=== PATIENT | female | born 1940 | race Caucasian/White ===

== ENCOUNTER 2018-10-12 13:29 | Emergency (ER) | payer MEDICARE ==
--- OUTSIDE RECORDS SUMMARY | 2018-10-12 13:44 | XMS REPORT ---
:1940 External Reference #:[id number] Author Organization [facility] 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 Dominique Simons MD Primary Care Physician Unavailable Payers Type Date Identification Numbers Payment Provider Subscriber Commercial Policy Number: [id number] [facility] Latosha Daigle PayID: [id number] [address] [address] [place] [address] Medicare Primary Policy Number: [id number] Medicare Latosha Daigle PayID: [id number] [address] [place] [address] Problems Date Description Provider Status Onset: 04/01/2015 Hyperlipidemia Dominique Simons MD Active Onset: 04/01/2015 Irritable bowel syndrome Dominique Simons MD Active Onset: 04/01/2015 Benign essential hypertension Dominique Simons MD Active Onset: 04/01/2015 Pure hypercholesterolemia Dominique Simons MD Active Onset: 04/01/2015 Hypokalemia Dominique Simons MD Active Onset: 10/10/2015 Onychomycosis Dominique Simons MD Active Onset: 03/12/2016 Impaired fasting glycaemia Dominique Simons MD Active Onset: 03/11/2017 Mild intermittent asthma Dominique Simons MD Active Onset: 03/12/2018 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 Onset: 09/19/2018 Increased frequency of urination Dominique Simons MD Active Onset: 08/05/2015 Essential hypertension Dominique Simons MD Inactive Inactive: 11/07/2015 Onset: 08/05/2015 Suspected sickle cell disease Dominique Simons MD Inactive Inactive: 11/07/2015 Onset: 08/05/2015 Screening mammography Dominique Simons MD Inactive Inactive: 11/07/2015 Onset: 08/05/2015 Screening for osteoporosis Dominique Simons MD Inactive Inactive: 11/07/2015 Onset: 04/01/2015 Intrinsic asthma without status Dominique Simons MD Inactive asthmaticus Inactive: 11/07/2015 Onset: 08/05/2015 Mixed hyperlipidemia Inactive Inactive: 11/07/2015 Onset: 08/05/2015 Mild intermittent asthma Dominique Simons MD Inactive Inactive: 09/19/2018 Onset: 08/05/2015 Inflamed seborrheic keratosis Dominique Simons MD Inactive Inactive: 09/19/2018 Onset: 10/10/2015 Abnormal glucose level Dominique Simons MD Inactive Inactive: 09/19/2018 Onset: 03/12/2016 Changes in skin texture Dominique Simons MD Inactive Inactive: 09/19/2018 Onset: 08/13/2016 Acquired trigger finger Dominique Simons MD Inactive Inactive: 09/19/2018 Onset: 08/13/2016 Chest pain Dominique Simons MD Inactive Inactive: 09/19/2018 Onset: 03/11/2017 Urine leukocyte test=++ Dominique Simons MD Inactive Inactive: 09/19/2018 Family History Date Family Member(s) Problem(s) Comments Father due to tetanus () - 49 Father heart murmur Mother due to Heart Disease () - 74 Children 2 First Daughter Hypertension First Daughter Hypercholesterolemia Second Daughter Hypertension Second Daughter Hypercholesterolemia Siblings 1 First Sister Hypercholesterolemia Social History Type Date Description Comments Lives With Diet Healthy, Well Balanced Pets None 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, 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 [employer] pt ADL's/IADL's Independent with all ADL's ADL's/IADL's Independent with all IADL's Hobbies Cooking Hobbies baking Hobbies Gardening Cigarette Use Never Smoked Cigarettes ETOH Use Denies alcohol use Smoking Patient has never smoked Daily Caffeine Consumes on average 2 cups of regular coffee per day Allergies, Adverse Reactions, Alerts Date Description Reaction Status Severity Comments 04/01/2015 NKDA active Medications Medication Date Status Form Strength Qnty SIG Indications Ordering Provider Nebulizer 10/11/ Active Device 1unit use with J45.20 Ronak, 2017 s albuterol MD Dominique vials every 4 hours if needed for wheezing, sob or persistent cough Melatonin ER 09/11/ Active Tablets ER 5mg 1 po qhs 2016 MD Dominique Furosemide 03/18/ Active Tablets 20mg 90tab 1 tab by Ronak, 2016 s mouth in in MD Dominique the morning Fenofibrate 04/05/ Active Tablets 160mg 90tab 1 by mouth Ronak, 2015 s every MD Dominique morning Bisoprolol 03/12/ Active Tablets 5mg 90tab 1 by mouth Ronak, Fumarate 2015 s every day MD Dominique Amlodipine 11/04/ Active Tablets 5mg 180ta 1 by mouth Ronak Besylate 2015 bs 2x/day MD Dominique Potassium 05/27/ Active Tablets ER 20Meq 120ta take one Ronak Chloride Radha 2014 bs tablet by MD Dominique ER mouth every day, take extra tab 2x/week Aspirin 04/01/ Active Tablets DR 81mg 90tab 1 by mouth Ronak, 2014 s every day MD Dominique Calcium 600 04/01/ Active Tablets 600mg 1 by mouth Ronak, 2014 twice a day MD Dominique Proair HFA 04/01/ Active Aerosol 108(90Base 8.500 2 2014 ) mcg/Act gm inhalations MD Dominique every 4 hours as needed Albuterol 04/01/ Active Nebulizer (2.5mg/3ML 225ml 1 vial in Ronak, Sulfate 2014 ) 0.083% nebulizer MD Dominique every 4 hours as needed for wheezing sob or persistant cough Cetirizine 04/01/ Active Tablets 10mg 30tab 1 by mouth Ronak, HCL 2015 s every day MD Dominique prn Nasalcrom 04/01/ Active Aerosol 5.2mg/Act 13ml 1 spray in Ronak2014 each nare MD Dominique tid as needed Zolpidem 04/01/ Active Tablets 10mg 30tab 1/2 by mouth Ronak, Tartrate 2014 s every night MD Dominique at bedtime as needed sleep Reference #: [id number] Valsartan-Hyd 04/01/ Active Tablets 320-25mg 90tab take one Ronak rochlorothiaz 2015 s tablet by MD Dominique shyanne mouth every day Freestyle 00/ Active Strips 100un test blood Filiberto Simons Test 0000 its sugar twice MD Dominique a day Magnesium 00/ Active Tablets 250mg 1 by mouth Unknown 0000 every day Bactrim DS 08/15/ Hx Tablets 800-160mg 14tab 1 tab by Josette 2018 - s mouth twice Charmaine, 09/19/ a day , PHD 2018 Macrobid 07/11/ Hx Capsules 100mg 14cap 1 tab by Ronak 2018 - s mouth twice MD Dominique 07/18/ a day 2018 Prednisone 07/25/ Hx Tablets 10mg 15tab 3 tabs by J45.21 Jatin, 2016 - s mouth every Jenniferl 08/01/ day x 5 days [facility], [employer] 2016 Pravastatin 06/04/ Hx Tablets 40mg 90tab Take One Jatin, Sodium 2016 - s Tablet By Shawanda 06/18/ Mouth Every eigh, [employer] 2016 Evening Truetest 11/07/ Hx Strips 50uni test glucose Ronak Blood Glucose 2016 - ts 2x/week dx: MD Dominique T Est Strips 11/28/ R73.09 2015 Terbinafine 10/10/ Hx Tablets 250mg 30tab 1 by mouth B35.1 Ronak HCL 2016 - s every day MD Dominique 2015 Hyoscyamine 04/04/ Hx Tablets 0.125mg 60tab one tab by 564.1 Ronak Sulfate 2014 - Dispers s mouth every MD Dominique 08/05/ hours 2014 abdominal pain as needed Potassium 04/01/ Hx Tablets ER 20Meq 90tab 1 by mouth Ronak Chloride ER 2015 - s every day MD Dominique 2014 Melatonin 04/01/ Hx Capsules 1mg 2 by mouth Ronak 2014 - every night MD Dominique 03/12/ at bedtime 2015 Advair Diskus 04/01/ Hx Aerosol 250-50mcg/ 3unit use 1 breath Ronak 2014 - Dose s twice a day MD Dominique 2017 Multi For Her 04/01/ Hx Capsules 1 keshawn Simons 2014 - MD Dominique 2015 Biotin 04/01/ Hx Tablets 5000mcg 1 by mouth Ronak 2014 - twice a day MD Dominique 2015 Vitamin C 06/26/ Hx Chewtabs 500mg every day Ronak 2014 - via g-tube MD Dominique 2014 Savision 04/01/ Hx Capsules Ronak 2014 - MD Dominique 2014 Hyoscyamine 04/01/ Hx Tablets ER 0.375mg 60tab 1 by mouth 564.1 Ronak , Sulfate ER 2014 - 12HR s every 12 hr MD Dominique 04/04/ for 2014 diarrhea/ibs Bisoprolol 04/01/ Hx Tablets 10mg 90tab Take One Ronak, Fumarate 2015 - s Tablet By MD Dominique 03/12/ Mouth Every 2015 Day Amlodipine 04/01/ Hx Tablets 2.5mg 90tab Take 2 tabs Ronak, Besylate 2014 - s By Mouth MD Dominique 11/07/ Every Day 2016 Pravastatin 04/01/ Hx Tablets 40mg 90tab Take One Clune, Sodium 2014 - s Tablet By Shawanda 04/05/ Mouth Every , [employer] 2016 Evening Glucosamine 00/ Hx Capsules 750mg, 600 take one Unknown Chondroitin 0000 - mg tablet by 500 Complex 03/12/ mouth every 2017 8 hours Immunizations CPT Code Status Date Vaccine Lot # [id number] Given 09/19/2018 Tdap injection [id number] Given 07/09/2018 Influenza High Dose [id number] Given 08/13/2016 Influenza Virus Vaccine Split Virus Use For [id number] Individual 3Yr Older [id number] Given 08/05/2015 Influenza Vaccine (Fluzone) Age 3 And Older [id number] 64054 Given 08/05/2015 Pneumococcal Conjugate Vaccine 13 Valent For [id number] Intramuscular Use Q2038 Given 07/24/2013 Influenza Vaccine (Fluzone) Age 3 And Older [id number] Given 03/16/2010 Zoster Vaccine Live Injection 91824 Given 02/04/2008 Tdap injection 82053 Given 08/26/2006 Pneumovax Injection Vital Signs Date Vital Result Comment 09/19/2018 BP Systolic 144 mmHg BP Diastolic 80 mmHg BP Systolic Sitting Right Arm 156 mmHg BP Diastolic Sitting Right Arm 80 mmHg Body Temperature 96.2 F Heart Rate 67 /min Respiratory Rate 18 /min Height 65 inches 5'5" Weight 144.00 lb BMI (Body Mass Index) 24.0 kg/m2 BSA (Body Surface Area) 1.72 m2 [place] body weight in kilograms 57 O2 % BldC Oximetry 97 % 07/09/2018 BP Systolic Sitting Right Arm 136 mmHg BP Diastolic Sitting Right Arm 68 mmHg Body Temperature 97.6 F Heart Rate 65 /min Weight 147.00 lb O2 % BldC Oximetry 94 % 03/12/2018 BP Systolic 134 mmHg BP Diastolic 78 mmHg Body Temperature 97.4 F Heart Rate 56 /min Respiratory Rate 18 /min Height 64.75 inches 5'4.75" Weight 147.00 lb BMI (Body Mass Index) 24.6 kg/m2 BSA (Body Surface Area) 1.73 m2 [place] body weight in kilograms 56 O2 % BldC Oximetry 93 % 09/11/2017 BP Systolic Sitting Left Arm 128 mmHg BP Diastolic Sitting Left Arm 62 mmHg Body Temperature 97.6 F Heart Rate 61 /min Height 64.75 inches 5'4.75" Weight 147.12 lb BMI (Body Mass Index) 24.7 kg/m2 BSA (Body Surface Area) 1.73 m2 [place] body weight in kilograms 56 O2 % BldC Oximetry 94 % 03/11/2017 BP Systolic 132 mmHg BP Diastolic 62 mmHg Body Temperature 97.7 F Heart Rate 56 /min Height 65 inches 5'5" Weight 150.00 lb BMI (Body Mass Index) 25.0 kg/m2 BSA (Body Surface Area) 1.75 m2 [place] body weight in kilograms 57 08/13/2016 BP Systolic Sitting Left Arm 135 mmHg BP Diastolic Sitting Left Arm 71 mmHg Body Temperature 97.8 F Heart Rate 16 /min Respiratory Rate 52 /min Height 65 inches 5'5" Weight 148.00 lb BMI (Body Mass Index) 24.6 kg/m2 BSA (Body Surface Area) 1.74 m2 07/25/2016 BP Systolic Sitting Left Arm 126 mmHg BP Diastolic Sitting Left Arm 78 mmHg Body Temperature 98.0 F Heart Rate 72 /min Respiratory Rate 18 /min Height 65 inches 5'5" Weight 148.00 lb BMI (Body Mass Index) 24.6 kg/m2 BSA (Body Surface Area) 1.74 m2 [place] body weight in kilograms 57 03/12/2016 BP Systolic 148 mmHg BP Diastolic 79 mmHg BP Systolic Sitting Left Arm 148 mmHg hr 55 BP Diastolic Sitting Left Arm 84 mmHg hr 55 Heart Rate 53 /min Height 65 inches 5'5" Weight 149.50 lb BMI (Body Mass Index) 24.9 kg/m2 BSA (Body Surface Area) 1.75 m2 12/21/2015 Height 65 inches 5'5" Weight 150.00 lb BMI (Body Mass Index) 25.0 kg/m2 BSA (Body Surface Area) 1.75 m2 11/07/2015 BP Systolic 129 mmHg hr 53 BP Diastolic 74 mmHg hr 53 BP Systolic Sitting Right Arm 136 mmHg BP Diastolic Sitting Right Arm 83 mmHg BP Systolic Sitting Left Arm 143 mmHg BP Diastolic Sitting Left Arm 75 mmHg Heart Rate 53 /min Weight 156.50 lb 10/10/2015 BP Systolic 154 mmHg BP Diastolic 84 mmHg BP Systolic Sitting Right Arm 154 mmHg BP Diastolic Sitting Right Arm 90 mmHg BP Systolic Sitting Left Arm 143 mmHg BP Diastolic Sitting Left Arm 84 mmHg Height 65.75 inches 5'5.75" Weight 154.00 lb BMI (Body Mass Index) 25.0 kg/m2 BSA (Body Surface Area) 1.78 m2 08/05/2015 BP Systolic 159 mmHg BP Diastolic 86 mmHg BP Systolic Sitting Right Arm 154 mmHg BP Diastolic Sitting Right Arm 88 mmHg BP Systolic Sitting Left Arm 151 mmHg BP Diastolic Sitting Left Arm 69 mmHg Body Temperature 96.6 F Heart Rate 51 /min Respiratory Rate 18 /min Height 65.75 inches 5'5.75" Weight 152.00 lb BMI (Body Mass Index) 24.7 kg/m2 BSA (Body Surface Area) 1.78 m2 04/01/2015 BP Systolic 112 mmHg BP Diastolic 68 mmHg Height 66.5 inches 5'6.50" Weight 150.50 lb BMI (Body Mass Index) 23.9 kg/m2 BSA (Body Surface Area) 1.78 m2 Results Test Date Test Result H/L Range Note CBC W/Automated Diff 09/17/2018 White Blood Count 6.6 K/uL 3.1-10.7 1 Red Blood Count 4.42 M/uL 3.90-5.40 1 Hemoglobin 13.8 gm/dL 11.6-15.8 1 Hematocrit 41.5 % 36.0-46.1 1 Mean Cell Volume 93.9 fl 80.9-99.0 1 Mean Corpuscular HGB 31.2 pg 25.9-32.7 1 Mean Corpuscular HGB Conc 33.3 g/dL 30.8-34.3 1 Platelet Count 215 K/uL 155-360 1 Red Cell Distri Width SD 45.6 fl 3-47 1 Red Cell Distri Width %CV 13.7 % 11.7-14.4 1 Mean Platelet Volume 12.0 fL 8.9-12.4 1 Neut% 66.8 % 40.4-72.8 1 Lymph % 21.1 % 20.0-42.0 1 Carver % 9.4 % 4.3-13.2 1 Eo% 2.4 % 0.0-6.6 1 Bas% 0.3 % 0.0-1.1 1 Neut# 4.41 K/uL 1.8-7.0 1 Lymph # 1.39 K/uL 1.0-4.0 1 Carver # 0.62 K/uL 0.3-0.9 1 Eos # 0.16 K/uL 0.0-0.5 1 Baso # 0.02 K/uL 0.0-0.1 1 Comprehensive Metabolic Panel 09/17/2018 Glucose 98 mg/dL 74-106 1 BUN 22 mg/dL High 7-18 1 Creatinine 0.9 mg/dL 0.6-1.3 1 Glom Filtration Rate, Estimate >60 mL/min >60 1 If >60 mL/min >60 1, 2 BUN/Creat 24.4 ratio 1 Sodium 140 mmol/L 136-145 1 Potassium 3.4 mmol/L Low 3.5-5.1 1 Chloride 104 mmol/L 98-107 1 Carbon Dioxide 30 mmol/L 21-32 1 Anion Gap 6 mEq/L Low 8-16 1 Calcium 9.6 mg/dL 8.5-10.1 1 Total Protein 7.4 g/dL 6.4-8.2 1 Albumin 4.0 g/dL 3.4-5.0 1 Globulin 3.4 g/dL 1.9-4.3 1 Alb/Glob 1.2 ratio 1 Bilirubin,Total 0.6 mg/dL 0.2-1.0 1 Sgot/Ast 21 U/L 15-37 1 SGPT/Alt 27 U/L 12-78 1 Alkaline Phosphatase 42 U/L Low 45-117 1 LDL Cholesterol Profile 09/17/2018 Cholesterol 191 mg/dL <200 1, 3 Triglycerides 100 mg/dL <150 1, 4 HDL Cholesterol 63 mg/dL >40 1, 5 LDL-Cholesterol 108 mg/dL < 100 1, 6 Glycohemoglobin A1c 09/17/2018 Glycohemoglobin (A1c) 5.6 % 4.2-6.3 1, 7 eAG 114 mg/dL 1 Urine Culture 09/17/2018 Urine Culture NO GROWTH: FINAL <SEE NOTE> 1, 8 Urine Culture 08/15/2018 Urine Culture STAPHYLOCOCCUS L <SEE NOTE> 9, 10 Quantity 10,000 - 50,000 <SEE NOTE> 9, 11 Ua RFX Micro & Culture II 08/15/2018 Urine Color YELLOW Yellow 9 Urine Clarity CLEAR Clear 9 Urine Glucose - Dipstick NEGATIVE mg/dL Negative 9 Urine Bilirubin - Dipstick NEGATIVE Negative 9 Urine Ketone NEGATIVE mg/dL Negative 9 Urine Specific Treichlers 1.015 1.010-1.030 9 Urine Blood TRACE Negative 9 Urine PH 6.0 Low 6.5-7.5 9 Urine Protein - Dipstick NEGATIVE mg/dL Negative 9 Urine Urobilinogen - Dipstick 0.2 E.U./dL 0.2-1.0 9 Urine Nitrite - Dipstick NEGATIVE Negative 9 Urine Leuk Esterase MODERATE Negative 9 Urine RBC 2-5 rbc/hpf 0-2 9 Urine WBC > 50 wbc/hpf High 0-7 9 Urine Epithelial Cells VERY FEW /lpf None Seen 9 Urine Bacteria VERY FEW None Seen 9 Urine Amorph Sediment VERY FEW Negative 9 Ast-GP67 08/15/2018 Penicillin G >=0.5 9 Oxacillin <=0.25 9 Tetracycline <=1 9 Nitrofurantoin <=16 9 Trimethoprim/Sulfamethoxazole <=10 9 Gentamicin <=0.5 9 Ciprofloxacin <=0.5 9 Moxifloxacin <=0.25 9 Levofloxacin <=0.12 9 Vancomycin <=0.5 9 Ua RFX Micro & Culture II 07/11/2018 Urine Color YELLOW Yellow 12 Urine Clarity SL CLOUDY Clear 12 Urine Glucose - Dipstick NEGATIVE mg/dL Negative 12 Urine Bilirubin - Dipstick NEGATIVE Negative 12 Urine Ketone NEGATIVE mg/dL Negative 12 Urine Specific Treichlers 1.020 1.010-1.030 12 Urine Blood TRACE Negative 12 Urine PH 6.0 Low 6.5-7.5 12 Urine Protein - Dipstick NEGATIVE mg/dL Negative 12 Urine Urobilinogen - Dipstick 0.2 E.U./dL 0.2-1.0 12 Urine Nitrite - Dipstick NEGATIVE Negative 12 Urine Leuk Esterase LARGE Negative 12 Urine RBC 10-20 rbc/hpf High 0-2 12 Urine WBC > 50 wbc/hpf High 0-7 12 Urine Epithelial Cells VERY FEW /lpf None Seen 12 Urine Bacteria MODERATE None Seen 12 Source: URINE, CLEAN CAT <SEE NOTE> 12, 13 Urine Culture 07/11/2018 Urine Culture STAPHYLOCOCCUS L <SEE NOTE> 12, 14 Quantity > 100,000 CFU/mL 12, 15 Ast-GP67 07/11/2018 Penicillin G >=0.5 12 Oxacillin <=0.25 12 Tetracycline <=1 12 Nitrofurantoin <=16 12 Trimethoprim/Sulfamethoxazole <=10 12 Gentamicin <=0.5 12 Ciprofloxacin <=0.5 12 Moxifloxacin <=0.25 12 Levofloxacin <=0.12 12 Vancomycin <=0.5 12 Urine Dipstick 07/09/2018 Ua Color yellow Yellow Ua Clarity clear Clear Ua Leuko negative Negative Ua Nitrite negative Negative Ua Urobilinogen 0.2 0.2 - 1.0 E.U./dL Ua Protein negative Negative Ua PH 6.5 6.5-7.5 Ua Blood trace Negative Ua Specific Treichlers 1.010 1.010-1.030 Ua Ketones negative Negative Ua Bilirubin negative Negative Ua Glucose negative Negative Urine Dipstick 02/28/2018 Ua Color yellow Yellow Ua Clarity clear Clear Ua Leuko negative Negative Ua Nitrite negative Negative Ua Protein negative Negative Ua PH 6.5 6.5-7.5 Ua Blood negative Negative Ua Specific Treichlers 1.010 1.010-1.030 Ua Ketones negative Negative Ua Bilirubin negative Negative Ua Glucose negative Negative Urine Culture 02/28/2018 Urine Culture NO GROWTH: FINAL <SEE NOTE> 16, 17 Urine Culture 10/11/2017 Urine Culture URETHRAL SKIP 18 Quantity > 100,000 CFU/mL 18, 19 CBS W/Automated Diff 09/13/2017 White Blood Count 8.3 K/uL 3.1-10.7 20 Red Blood Count 4.33 M/uL 3.90-5.40 20 Hemoglobin 13.6 gm/dL 11.6-15.8 20 Hematocrit 40.1 % 36.0-46.1 20 Mean Cell Volume 92.6 fl 80.9-99.0 20 Mean Corpuscular HGB 31.4 pg 25.9-32.7 20 Mean Corpuscular HGB Conc 33.9 g/dL 30.8-34.3 20 Platelet Count 239 K/uL 155-360 20 Red Cell Distri Width SD 43.3 fl 3-47 20 Red Cell Distri Width %CV 13.1 % 11.7-14.4 20 Mean Platelet Volume 12.0 fL 8.9-12.4 20 Neut% 66.3 % 40.4-72.8 20 Lymph % 20.9 % 20.0-42.0 20 Carver % 9.8 % 4.3-13.2 20 Eo% 2.6 % 0.0-6.6 20 Bas% 0.4 % 0.0-1.1 20 Neut# 5.53 K/uL 1.8-7.0 20 Lymph # 1.74 K/uL 1.0-4.0 20 Carver # 0.82 K/uL 0.3-0.9 20 Eos # 0.22 K/uL 0.0-0.5 20 Baso # 0.03 K/uL 0.0-0.1 20 Comprehensive Metabolic Panel 09/13/2017 Glucose 90 mg/dL 74-106 20 BUN 24 mg/dL High 7-18 20 Creatinine 0.9 mg/dL 0.6-1.3 20 Glom Filtration Rate, Estimate >60 mL/min >60 20 If >60 mL/min >60 20, 21 BUN/Creat 26.6 ratio 20 Sodium 143 mmol/L 136-145 20 Potassium 3.5 mmol/L 3.5-5.1 20 Chloride 106 mmol/L 98-107 20 Carbon Dioxide 30 mmol/L 21-32 20 Anion Gap 7 mEq/L Low 8-16 20 Calcium 9.4 mg/dL 8.5-10.1 20 Total Protein 7.2 g/dL 6.4-8.2 20 Albumin 3.9 g/dL 3.4-5.0 20 Globulin 3.3 g/dL 1.9-4.3 20 Alb/Glob 1.2 ratio 20 Bilirubin,Total 0.5 mg/dL 0.2-1.0 20 Sgot/Ast 18 U/L 15-37 20 SGPT/Alt 32 U/L 12-78 20 Alkaline Phosphatase 40 U/L Low 45-117 20 LDL Cholesterol Profile 09/13/2017 Cholesterol 162 mg/dL <200 20, 22 Triglycerides 121 mg/dL <150 20, 23 HDL Cholesterol 62 mg/dL >40 20, 24 LDL-Cholesterol 76 mg/dL < 100 20, 25 Glycohemoglobin A1c 09/13/2017 Glycohemoglobin (A1c) 6.0 % 4.2-6.3 20, 26 eAG 126 mg/dL 20 Basic Metabolic Panel 05/14/2017 Glucose 92 mg/dL 74-106 27 BUN 27 mg/dL High 04-23 27 Creatinine 1.1 mg/dL 0.6-1.3 27 Glom Filtration Rate, Estimate 51 mL/min >60 27 If >60 mL/min >60 27, 28 BUN/Creat 24.5 ratio 27 Sodium 143 mmol/L 136-145 27 Potassium 3.7 mmol/L 3.5-5.1 27 Chloride 104 mmol/L 98-107 27 Carbon Dioxide 30 mmol/L 21-32 27 Anion Gap 9 mEq/L 8-16 27 Calcium 10.0 mg/dL 8.5-10.1 27 Microalb/Creat Ratio,Random 03/11/2017 Microalbumin,Urine 34.1 mg/L < 20.0 29 Microalbumin/Creatinine Ratio 64.3 ug/mgCrt < 30.0 29 Urine Creatinine Conc 53 mg/dL 29 Urine Culture 03/11/2017 Urine Culture URETHRAL SKIP 29 Quantity > 100,000 CFU/mL 29, 30 Glycohemoglobin A1c 03/11/2017 Glycohemoglobin (A1c) 6.3 % 4.2-6.3 29, 31 eAG 134 mg/dL 29 LDL Cholesterol Profile 08/24/2016 Cholesterol 192 mg/dL <200 32, 33 Triglycerides 121 mg/dL <150 32, 34 HDL Cholesterol 64 mg/dL >40 32, 35 LDL-Cholesterol 104 mg/dL < 100 32, 36 Comprehensive Metabolic Panel 08/24/2016 Glucose 93 mg/dL 74-106 32 BUN 21 mg/dL High 18 32 Creatinine 0.9 mg/dL 0.6-1.3 32 Glom Filtration Rate, Estimate >60 mL/min >60 32 If >60 mL/min >60 32, 37 BUN/Creat 23.3 ratio 32 Sodium 140 mmol/L 136-145 32 Potassium 3.6 mmol/L 3.5-5.1 32 Chloride 105 mmol/L 98-107 32 Carbon Dioxide 29 mmol/L 21-32 32 Anion Gap 6 mEq/L Low 8-16 32 Calcium 9.8 mg/dL 8.5-10.1 32 Total Protein 7.4 g/dL 6.4-8.2 32 Albumin 3.9 g/dL 3.4-5.0 32 Globulin 3.5 g/dL 1.9-4.3 32 Alb/Glob 1.1 ratio 32 Bilirubin,Total 0.6 mg/dL 0.2-1.0 32 Sgot/Ast 33 U/L 15-37 32 SGPT/Alt 42 U/L 12-78 32 Alkaline Phosphatase 47 U/L 45-117 32 Glycohemoglobin A1c 08/24/2016 Glycohemoglobin (A1c) 5.8 % 4.2-6.3 32, 38 eAG 120 mg/dL 32 CBS W/Automated Diff 08/24/2016 White Blood Count 8.0 K/uL 3.1-10.7 32 Red Blood Count 4.41 M/uL 3.90-5.40 32 Hemoglobin 14.3 gm/dL 11.6-15.8 32 Hematocrit 41.5 % 36.0-46.1 32 Mean Cell Volume 94.1 fl 80.9-99.0 32 Mean Corpuscular HGB 32.4 pg 25.9-32.7 32 Mean Corpuscular HGB Conc 34.5 g/dL High 30.8-34.3 32 Platelet Count 256 K/uL 155-360 32 Red Cell Distri Width SD 43.4 fl 3-47 32 Red Cell Distri Width %CV 13.0 % 11.7-14.4 32 Mean Platelet Volume 11.8 fL 8.9-12.4 32 Neut% 68.1 % 40.4-72.8 32 Lymph % 18.8 % 17.0-46.1 32 Carver % 11.2 % 4.3-13.2 32 Eo% 1.6 % 0.0-6.6 32 Bas% 0.3 % 0.0-1.1 32 Neut# 5.42 K/uL 1.8-7.0 32 Lymph # 1.50 K/uL Low 1.8-7.0 32 Carver # 0.89 K/uL 0.3-0.9 32 Eos # 0.13 K/uL 0.0-0.5 32 Baso # 0.02 K/uL 0.0-0.1 32 Laboratory test finding 08/24/2016 Slide Review (SEE NOTE) 32, 39 Glycohemoglobin A1c 03/12/2016 Glycohemoglobin (A1c) 5.8 % 4.2-6.3 40 eAG 120 mg/dL Glycohemoglobin A1c 10/10/2015 Glycohemoglobin (A1c) 5.9 % 4.2-6.3 41 eAG 123 mg/dL Basic Metabolic Panel 10/10/2015 Glucose 117 mg/dL High 74-106 BUN 15 mg/dL 7-18 Creatinine 0.7 mg/dL 0.6-1.3 Glom Filtration Rate, Estimate >60 mL/min >60 If >60 mL/min >60 42 BUN/Creat 21.4 ratio Sodium 139 mmol/L 136-145 Potassium 4.0 mmol/L 3.5-5.1 Chloride 104 mmol/L 98-107 Carbon Dioxide 31 mmol/L 21-32 Anion Gap 4 mEq/L Low 8-16 Calcium 9.3 mg/dL 8.5-10.1 Laboratory test finding 08/05/2015 Fit Hemoccult negative LDL Cholesterol Profile 08/05/2015 Cholesterol 192 mg/dL <200 43 Triglycerides 173 mg/dL High <150 44 HDL Cholesterol 56 mg/dL >40 45 LDL-Cholesterol 101 mg/dL < 100 46 Comprehensive Metabolic Panel 08/05/2015 Glucose 110 mg/dL High 74-106 BUN 14 mg/dL 7-18 Creatinine 0.8 mg/dL 0.6-1.3 Glom Filtration Rate, Estimate >60 mL/min >60 If >60 mL/min >60 47 BUN/Creat 17.5 ratio Sodium 138 mmol/L 136-145 Potassium 3.7 mmol/L 3.5-5.1 Chloride 102 mmol/L 98-107 Carbon Dioxide 32 mmol/L 21-32 Anion Gap 4 mEq/L Low 8-16 Calcium 9.5 mg/dL 8.5-10.1 Total Protein 7.0 g/dL 6.4-8.2 Albumin 3.8 g/dL 3.4-5.0 Globulin 3.2 g/dL 1.9-4.3 Alb/Glob 1.2 ratio Bilirubin,Total 0.6 mg/dL 0.2-1.0 Sgot/Ast 28 U/L 15-37 SGPT/Alt 50 U/L 12-78 Alkaline Phosphatase 87 U/L 45-117 CBS W/Automated Diff 08/05/2015 White Blood Count 7.5 K/uL 3.1-10.7 Red Blood Count 4.39 M/uL 3.90-5.40 Hemoglobin 14.5 gm/dL 11.6-15.8 Hematocrit 42.2 % 36.0-46.1 Mean Cell Volume 96.1 fl 80.9-99.0 Mean Corpuscular HGB 33.0 pg High 25.9-32.7 Mean Corpuscular HGB Conc 34.4 g/dL High 30.8-34.3 Platelet Count 196 K/uL 155-360 Red Cell Distri Width SD 45.3 fl 3-47 Red Cell Distri Width %CV 13.3 % 11.7-14.4 Mean Platelet Volume 12.1 fL 8.9-12.4 Neut% 70.8 % 40.4-72.8 Lymph % 17.5 % 17.0-46.1 Carver % 10.1 % 4.3-13.2 Eo% 1.2 % 0.0-6.6 Bas% 0.4 % 0.0-1.1 Neut# 5.34 K/uL 1.0-7.0 Lymph # 1.32 K/uL Low 1.8-7.0 Carver # 0.76 K/uL 0.3-0.9 Eos # 0.09 K/uL 0.0-0.5 Baso # 0.03 K/uL 0.0-0.1 1 I10 E78.5 Z13.0 R73.01 N30.81 2 Note: Persistent reduction for 3 months or more in an eGFR <60 mL/min/1.73 m2 defines CKD. Patients with eGFR values >/=60 mL/min/1.73 m2 may also have CKD if evidence of persistent proteinuria is present. The original MDRD equation for estimated GFR is not valid for patients less than 18 years of age. Additional information may be found at www.kdoqi.org. 3 Reference Guidelines*: Desirable: ........... < 200 mg/dL Borderline High: ..... 200-239 mg/dL High: ................ >=240 mg/dL * The National Cholesterol Education Program (NCEP) 4 Reference Guidelines*: Normal: ............. < 150 mg/dL Borderline High: .... 150-199 mg/dL High: ............... 200-499 mg/dL Very High: .......... > 500 mg/dL * Source: National Cholesterol Education Program (NCEP) 5 Reference Guidelines*: Low HDL: ..... < 40 mg/dL Normal: ..... 40-60 mg/dL Desirable: ... > 60 mg/dL *The National Cholesterol Education Program(NCEP) 6 Reference Guidelines*: Optimal:........... <100 mg/dL Near Optimal....... 100-129 mg/dL Borderline High.... 130-159 mg/dL High............... 160-189 mg/dL Very High.......... >=190 mg/dL * Source: National Cholesterol Education Program (NCEP) 7 Elevated levels of HbA1c suggest the need for more aggressive treatment of glycemia. The [place] [employer] recommends that a primary goal of therapy should be a HbA1c of <7% and that physicians should re-evaluate the treatment regimen in patients with HbA1c values consistently >8%. 8 NO GROWTH: FINAL REPORT 9 R30.0 10 STAPHYLOCOCCUS LUGDUNENSIS 11 10,000 - 50,000 CFU/mL 12 R31.9 13 URINE, CLEAN CATCH 14 STAPHYLOCOCCUS LUGDUNENSIS 15 > 100,000 CFU/mL 16 DROP OFF SPEC AT [facility] 17 NO GROWTH: FINAL REPORT 18 R82.99 19 > 100,000 CFU/mL 20 Z13.0 E78.5 I10 R73.01 21 Note: Persistent reduction for 3 months or more in an eGFR <60 mL/min/1.73 m2 defines CKD. Patients with eGFR values >/=60 mL/min/1.73 m2 may also have CKD if evidence of persistent proteinuria is present. The original MDRD equation for estimated GFR is not valid for patients less than 18 years of age. Additional information may be found at www.kdoqi.org. 22 Reference Guidelines*: Desirable: ........... < 200 mg/dL Borderline High: ..... 200-239 mg/dL High: ................ >=240 mg/dL * The National Cholesterol Education Program (NCEP) 23 Reference Guidelines*: Normal: ............. < 150 mg/dL Borderline High: .... 150-199 mg/dL High: ............... 200-499 mg/dL Very High: .......... > 500 mg/dL * Source: National Cholesterol Education Program (NCEP) 24 Reference Guidelines*: Low HDL: ..... < 40 mg/dL Normal: ..... 40-60 mg/dL Desirable: ... > 60 mg/dL *The National Cholesterol Education Program(NCEP) 25 Reference Guidelines*: Optimal:........... <100 mg/dL Near Optimal....... 100-129 mg/dL Borderline High.... 130-159 mg/dL High............... 160-189 mg/dL Very High.......... >=190 mg/dL * Source: National Cholesterol Education Program (NCEP) 26 Elevated levels of HbA1c suggest the need for more aggressive treatment of glycemia. The [place] [employer] recommends that a primary goal of therapy should be a HbA1c of <7% and that physicians should re-evaluate the treatment regimen in patients with HbA1c values consistently >8%. 27 E78.00 I44.0 I10 28 Note: Persistent reduction for 3 months or more in an eGFR <60 mL/min/1.73 m2 defines CKD. Patients with eGFR values >/=60 mL/min/1.73 m2 may also have CKD if evidence of persistent proteinuria is present. The original MDRD equation for estimated GFR is not valid for patients less than 18 years of age. Additional information may be found at www.kdoqi.org. 29 R73.01 I10 R82.99 30 > 100,000 CFU/mL SPECIMEN IS A MIX OF GRAM POSITIVE ORGANISMS CONSISTENT WITH SKIN VAGINAL CONTAMINATION. SUGGEST REPEAT SPECIMEN IF CLINICALLY INDICATED. 31 Elevated levels of HbA1c suggest the need for more aggressive treatment of glycemia. The [place] [employer] recommends that a primary goal of therapy should be a HbA1c of <7% and that physicians should re-evaluate the treatment regimen in patients with HbA1c values consistently >8%. 32 E78.5 R73.01 Z13.0 33 Reference Guidelines*: Desirable: ........... < 200 mg/dL Borderline High: ..... 200-239 mg/dL High: ................ >=240 mg/dL * The National Cholesterol Education Program (NCEP) 34 Reference Guidelines*: Normal: ............. < 150 mg/dL Borderline High: .... 150-199 mg/dL High: ............... 200-499 mg/dL Very High: .......... > 500 mg/dL * Source: National Cholesterol Education Program (NCEP) 35 Reference Guidelines*: Low HDL: ..... < 40 mg/dL Normal: ..... 40-60 mg/dL Desirable: ... > 60 mg/dL *The National Cholesterol Education Program(NCEP) 36 Reference Guidelines*: Optimal:........... <100 mg/dL Near Optimal....... 100-129 mg/dL Borderline High.... 130-159 mg/dL High............... 160-189 mg/dL Very High.......... >=190 mg/dL * Source: National Cholesterol Education Program (NCEP) 37 Note: Persistent reduction for 3 months or more in an eGFR <60 mL/min/1.73 m2 defines CKD. Patients with eGFR values >/=60 mL/min/1.73 m2 may also have CKD if evidence of persistent proteinuria is present. The original MDRD equation for estimated GFR is not valid for patients less than 18 years of age. Additional information may be found at www.kdoqi.org. 38 Elevated levels of HbA1c suggest the need for more aggressive treatment of glycemia. The [place] [employer] recommends that a primary goal of therapy should be a HbA1c of <7% and that physicians should re-evaluate the treatment regimen in patients with HbA1c values consistently >8%. 39 Instrument flagged sample for slide review. Less than 10% Bands seen, no other immature WBC's seen. RBC morphology essentially normal. Platelet estimate=NORMAL 40 Elevated levels of HbA1c suggest the need for more aggressive treatment of glycemia. The [place] [employer] recommends that a primary goal of therapy should be a HbA1c of <7% and that physicians should re-evaluate the treatment regimen in patients with HbA1c values consistently >8%. 41 Elevated levels of HbA1c suggest the need for more aggressive treatment of glycemia. The [place] [employer] recommends that a primary goal of therapy should be a HbA1c of <7% and that physicians should re-evaluate the treatment regimen in patients with HbA1c values consistently >8%. 42 Note: Persistent reduction for 3 months or more in an eGFR <60 mL/min/1.73 m2 defines CKD. Patients with eGFR values >/=60 mL/min/1.73 m2 may also have CKD if evidence of persistent proteinuria is present. The original MDRD equation for estimated GFR is not valid for patients less than 18 years of age. Additional information may be found at www.kdoqi.org. 43 Reference Guidelines*: Desirable: ........... < 200 mg/dL Borderline High: ..... 200-239 mg/dL High: ................ >=240 mg/dL * The National Cholesterol Education Program (NCEP) 44 Reference Guidelines*: Normal: ............. < 150 mg/dL Borderline High: .... 150-199 mg/dL High: ............... 200-499 mg/dL Very High: .......... > 500 mg/dL * Source: National Cholesterol Education Program (NCEP) 45 Reference Guidelines*: Low HDL: ..... < 40 mg/dL Normal: ..... 40-60 mg/dL Desirable: ... > 60 mg/dL *The National Cholesterol Education Program(NCEP) 46 Reference Guidelines*: Optimal:........... <100 mg/dL Near Optimal....... 100-129 mg/dL Borderline High.... 130-159 mg/dL High............... 160-189 mg/dL Very High.......... >=190 mg/dL * Source: National Cholesterol Education Program (NCEP) 47 Note: Persistent reduction for 3 months or more in an eGFR <60 mL/min/1.73 m2 defines CKD. Patients with eGFR values >/=60 mL/min/1.73 m2 may also have CKD if evidence of persistent proteinuria is present. The original MDRD equation for estimated GFR is not valid for patients less than 18 years of age. Additional information may be found at www.kdoqi.org. Procedures Date CPT Code Description Status Comment 09/19/2018 Mammogram Completed 09/11/2018 Diabetic Foot Exam Completed 08/05/2017 Bone Mineral Density Test Completed 07/17/2016 Colonoscopy Completed 05/07/2016 Colonoscopy Completed [place]: told probably no more 08/12/2015 Mammogram Completed 08/05/2015 44562 Excision Of Warts Less Than Completed 15 Encounters Type Date Location Provider CPT E/M Dx Office Visit 09/19/2018 9:00a Family Medicine Dominique Sylvester [place] [address] I10 J45.20 E78.5 H35.3221 R35.0 Office Visit 08/15/2018 1:00p [place], [address] R35.0 Main PHD R30.0 Office Visit 07/09/2018 1:00p Family Medicine [facility] [place] [address] R10.9 R31.9 Z23 Office Visit 03/12/2018 2:45p Family [place] [address] I10 E78.5 R73.01 J45.20 H35.3221 Office Visit 02/28/2018 11:30a Family Medicine [facility] Nurse [address] Office Visit 09/11/2017 8:30a Family Medicine Dominique Sylvester [place] [address] E78.5 I10 R73.01 J45.20 Office Visit 03/11/2017 4:00p [place] [address] I10 R73.01 E78.5 J45.20 Office Visit 08/13/2016 1:15p [place] [address] M65.332 R07.89 I10 E78.5 J45.20 R73.01 Z13.0 Z23 Office Visit 07/25/2016 1:30p [facility] Jerome Steiner, [address] J45.21 [facility] [employer] Office Visit 03/12/2016 1:30p [facility] [place] [address] I[address] [facility] R73.01 R23.4 Office Visit 11/07/2015 9:00a [facility] [place] [address] I10 R73.09 Office Visit 10/10/2015 9:00a [facility] [place] [address] I10 B35.1 R73.09 Office Visit 08/05/2015 9:00a [facility] Dominique Simons [place] [address] Z00.00 E78.5 I10 Z13.0 J45.20 Z12.31 Z13.820 L82.0 Z23 Office Visit 04/01/2015 10:00a [facility] [place] [address] 564.1 493.10 401.1 272.0 276.8 Plan of Care Future Appointment(s):01/12/2019 8:30 am - Dominique Simons MD at [facility]09/19/2018 - Dominique Simons MDZ00.00 Encntr for general adult medical exam w/o abnormal findingsComments:MAINTAIN WEIGHT AND DAILY EXERCISE; DAILY SUNSCREEN FOR SKIN CANCER PREVENTION;CALCIUM AND VIT D SUPPLEMENTS : CONTINUEPAP/PELVIC, MAMMOGRAM, COLON CA SCREENING, LABS AND IMMUNIZATION PLANS [facility] PROXY: IN CHART;WE REVIEWED ALL YOU LABS.TETANUS WITH PERTUSSIS TODAY, THEN YOU'RE ALL UP TODATE.FIND OUT FROM INSURANCE PLAN ABOUT COST OF SHINGRIX VACCINE.I10 Essential (primary) hypertensionComments:OKAY, A LITTLE BIT HIGHER THAN WE WANT.PLAN: INCREASE AMLODIPINE TO 2X/DAY INCREASE POTASSIUM TO 2 TABS 2X/WEEK CONTINUE FUROSEMIDE, VALSARTAN/ HCTZ AND BISOPROLOL AT USUAL DOSES CONTINUE BABY ASPIRIN ONCE A DAY CHECK BP AT HOME; CALL IF BP IS NO BETTER BP GOAL: 130/ 60Follow up:3 MOJ45.20 Mild intermittent asthma, uncomplicatedComments:CONT. 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
[2018-10-12 13:48] VITALS: BP 136/62
--- NOTE | 2018-10-12 14:03 | UC ---
Respiratory Complaint HPI - HPI Summary HPI Summary: 78 year old female with history of asthma presents with 2 day history of progressively worsening chest tightness, difficulty breathing, and a non- prodcutive cough. States has had to use her rescue inhaler 2 times in past 2 days. Denies fever, chills, nasal congestion, ear pain, sore throat, chest pain , palpitations, abdominal pain, nausea, or vomiting. - History of Current Complaint Chief Complaint: UCRespiratory Stated Complaint: COUGH,ST Time Seen by Provider: 10/12/18 13:44 Hx Obtained From: Patient Pain Intensity: 0 - Allergies/Home Medications Allergies/Adverse Reactions: Allergies Allergy/AdvReac Type Severity Reaction Status Date / Time cat dander Allergy Eyes Verified 10/12/18 13:45 Itchy/Swollen/Red/Watery environmental Allergy Eyes Uncoded 10/12/18 13:45 Itchy/Swollen/Red/Watery Home Medications: Home Medications Albuterol 2.5MG/3ML (0.083%)* [Ventolin 2.5 MG/3 ML NEB.MARU*] 2.5 mg INH Q6H PRN 10/12/18 [History Confirmed 10/12/18] Albuterol HFA INHALER* [Ventolin HFA Inhaler*] 1 - 2 puff INH Q4H PRN 10/12/18 [ History Confirmed 10/12/18] Amlodipine Besylate [Norvasc 5 mg tab] 5 mg PO DAILY 10/12/18 [History Confirmed 10/12/18] Aspirin 81 mg CHEW TAB* 81 mg PO DAILY 10/12/18 [History Confirmed 10/12/18] Bisoprolol TAB* [Zebeta TAB*] 5 mg PO DAILY 10/12/18 [History Confirmed 10/12/18 ] Calcium Carbonate [Calcium] 500 mg PO BID 10/12/18 [History Confirmed 10/12/18] Cetirizine* [ZyrTEC 10 MG TAB*] 10 mg PO DAILY 10/12/18 [History Confirmed 10/12] Fenofibrate(NF) [Tricor(NF)] 1 tab PO DAILY 10/12/18 [History Confirmed 10/12/18 ] Fluticasone-Salmeterol 250-50* [Advair Diskus 250-50*] 1 puff INH BID 10/12/18 [ History Confirmed 10/12/18] Furosemide TAB* [Lasix TAB*] 20 mg PO DAILY 10/12/18 [History Confirmed 10/12/18 ] Magnesium Oxide [Magnesium] 250 mg PO DAILY 10/12/18 [History Confirmed 10/12/18 ] Potassium Chloride 20 meq PO DAILY 10/12/18 [History Confirmed 10/12/18] Valsartan/HCTZ 320/25(NF) [Diovan Hct 320/25(NF)] 1 tab PO DAILY 10/12/18 [ History Confirmed 10/12/18] Zolpidem TAB* [Ambien*] 5 mg PO BEDTIME PRN 10/12/18 [History Confirmed 10/12/18 ] PMH/Surg Hx/FS Hx/Imm Hx Endocrine History: Dyslipidemia Cardiovascular History: Hypertension, Other - Venous insufficiency Respiratory History: COPD - Surgical History Surgical History: Yes Surgery Procedure, Year, and Place: tonsillectomy. hysterectomy. . gallbladder removal. bone cyst remocal right leg - Family History Known Family History: Positive: Cardiac Disease, Hypertension - Social History Occupation: Retired Lives: With Family Alcohol Use: None Substance Use Type: None Smoking Status (MU): Never Smoked Tobacco Review of Systems All Other Systems Reviewed And Are Negative: Yes Constitutional: Negative: Fever, Chills Skin: Positive: Negative Eyes: Negative: Drainage, Eye Redness ENT: Negative: Sore Throat, Ear Ache, Nasal Discharge, Sinus Congestion, Sinus Pain/Tenderness Respiratory: Positive: Shortness Of Breath, Cough Cardiovascular: Negative: Palpitations, Chest Pain Gastrointestinal: Negative: Abdominal Pain, Vomiting, Nausea Genitourinary: Positive: Negative Musculoskeletal: Positive: Negative Neurological: Positive: Negative Is Patient Immunocompromised?: No Physical Exam - Summary Physical Exam Summary: GENERAL APPEARANCE: Well developed, well nourished, alert and cooperative, and appears to be in no acute distress. EYES: Conjunctiva clear. No discharge. Vision is grossly intact. EARS: External auditory canals and tympanic membranes clear, hearing grossly intact. NOSE: No nasal congestion or discharge. THROAT: Oral cavity and pharynx normal. No inflammation, swelling, exudate, or lesions. Teeth and gingiva in good general condition. NECK: Neck supple, non-tender without lymphadenopathy. CARDIAC: Normal S1 and S2. No S3, S4 or murmurs. Rhythm is regular. There is no peripheral edema, cyanosis or pallor. Extremities are warm and well perfused. Capillary refill is less than 2 seconds. LUNGS: Clear to auscultation without rales, rhonchi, wheezing or diminished breath sounds. Loose non-productive cough. ABDOMEN: Positive bowel sounds. Soft, nondistended, nontender. No guarding or rebound. No masses or hepatosplenomegally. MUSKULOSKELETAL: ROM intact to all extremities. No joint erythema or tenderness. Normal muscular development. Normal gait. SKIN: Skin normal color, texture and turgor with no lesions or eruptions. Triage Information Reviewed: Yes Vital Signs: Initial Vital Signs Temp 98.9 F 10/12/18 13:44 Pulse 72 10/12/18 13:44 Resp 23 10/12/18 13:44 BP 136/62 10/12/18 13:44 Pulse Ox 96 10/12/18 13:44 Vital Signs Reviewed: Yes UC Diagnostic Evaluation - Laboratory O2 Sat by Pulse Oximetry: 96 Respiratory Course/Dx - Course Course Of Treatment: 78 year old female with history of asthma presents with 2 day history of progressively worsening chest tightness, difficulty breathing, and a non-prodcutive cough. States has had to use her rescue inhaler 2 times in past 2 days. Denies fever, chills, nasal congestion, ear pain, sore throat, chest pain, palpitations, abdominal pain, nausea, or vomiting. Afebrile. VSS. Exam reveals well appearing older adult in no acute distress. Loose non- productive cough. Bilateral breath sounds clear. Remainder of exam unremarkable. Symptoms are consistent with an acute bronchitis. With her history of asthma will treat with course of antibiotics and have her continue to use her inhalers as directed. She is to follow up with her PCP in 5-7 days if symptoms do not improve. Warning symptoms were reviewed with patient. Verbalizes understanding and agrees with POC. - Differential Dx/Diagnosis Differential Diagnosis/HQI/PQRI: Bronchitis, Exacerbation Of COPD, Lower Resp Infection, Sinusitis Provider Diagnosis: Acute bronchitis, Asthma Discharge - Sign-Out/Discharge Documenting (check all that apply): Patient Departure All imaging exams completed and their final reports reviewed: No Studies - Discharge Plan Condition: Stable Disposition: HOME Prescriptions: Azithromyxin ROBEL (NF) [Z-Robel (Zithromax) 250 mg tabs #6] 2 tab PO .TODAY, THEN 1 DAILY #6 tab Patient Education Materials: Acute Bronchitis (ED) Referrals: Dominique Simons MD [Primary Care Provider] - 5 Days (If no improvement in symptoms.) Additional Instructions: Your history and exam are consistent with an acute bronchitis. With your asthma history we will treat you with an antibiotic for the infection. Start azithromycin 2 tabs today then 1 tab a day for next 4 days. Drink plenty of fluids to avoid dehydration especially if you are running any fever. Take over the counter acetaminophen (Tylenol) according to directions as needed for pain or fever. Follow up with your primary care provider in 5-7 days if symptoms persist. Seek immediate medical attention in the emergency room if you have fever greater than 100.5 F despite taking acetaminophen, you have chest pain, feel as if your heart is racing or skipping beats, having difficulty breathing despite using your rescue inhaler, or have any worsening of symptoms. - Billing Disposition and Condition Condition: STABLE Disposition: Home - Attestation Statements Provider Attestation: I was available for consult. This patient was seen by the BLANE. The patient was not presented to , seen by or examined by md -Jackeline Sanders MD
== END 2018-10-12 14:20 | disposition home or self-care (01) ==
LOC: UCCORT 13:29
DX: J20.9 Acute bronchitis, unspecified (principal); J45.909 Unspecified asthma, uncomplicated; I10 Essential (primary) hypertension; J44.9 Chronic obstructive pulmonary disease, unspecified
CPT/HCPCS: 99202; G0463

== ENCOUNTER 2019-07-06 18:16 | Emergency (ER) | payer MEDICARE, OTHER ==
--- OUTSIDE RECORDS SUMMARY | 2019-07-06 18:26 | XMS REPORT | Continuity of Care Document ---
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 Active Problems Provider Date Hyperlipidemia Dominique Simons MD Onset: 04/01/2015 Irritable bowel syndrome Dominique Simons MD Onset: 04/01/2015 Benign essential hypertension Dominique Simons MD Onset: 04/01/2015 Pure hypercholesterolemia Dominique Simons MD Onset: 04/01/2015 Hypokalemia Dominique Simons MD Onset: 04/01/2015 Onychomycosis Dominique Simons MD Onset: 10/10/2015 Impaired fasting glycaemia Dominique Simons MD Onset: 03/12/2016 Mild intermittent asthma Dominique Simons MD Onset: 03/11/2017 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 Exacerbation of intermittent asthma Dominique Simons MD Onset: 03/06/2019 Shoulder joint pain Dominique Simons MD Onset: 01/12/2019 Increased frequency of urination Dominique Simons MD Onset: 09/19/2018 Social History Type Date Description Comments Sex Unknown Tobacco Use Start: Unknown Never Smoked Cigarettes Smoking Status Reviewed: 06/09/19 Never Smoked Cigarettes ETOH Use Denies alcohol use Tobacco Use Start: Unknown Patient has never smoked Allergies, Adverse Reactions, Alerts Active Allergies Reaction Severity Comments Date Statins 06/09/2019 Medications Active Medications SIG Qnty Indications Ordering Date Provider Proair HFA 2 inhalations every 17gm J45.30 Dominique Simons, 03/20/2019 4 hours as needed 108(90Base) mcg/Act for wheezing, sob Aerosol or persistent cough True Metrix Air use to check 1units R73.01 Dominique Simons, 03/18/2019 Blood Glucose glucose once a day Meter/Bluetooth Smart W/Device Kit True Metrix Blood test glucose once a 150units R73.01 Dominique Simons, 09/2019 Glucosetest Strips day Strips Trueplus Lancets use to check 150units R73.01 Dominique Simons, 03/18/2019 33G Micro Thin glucose once a day 33G Misc Advair Diskus take 1 puff twice 180units Dominique Simons, 03/06/2019 daily. 250-50mcg/Dose Aerosol Cefdinir 1 by mouth twice a 20caps J45.21 Dominique Simons, 03/06/2019 300mg day MD Capsules Furosemide take one tablet by 90tabs Dominique Simons, 12/31/2018 40mg mouth in the MD Tablets morning Nebulizer use with albuterol 1units J45.20 Dominique Simons, 10/11/2017 Device vials every 4 hours MD if needed for wheezing, sob or persistent cough Melatonin ER 1 po qhs Dominique Simons, 09/11/2017 5mg MD Tablets ER Fenofibrate 1 by mouth every 90tabs Dominique Simons, 04/05/2016 160mg morning MD Tablets Bisoprolol Fumarate 1 by mouth every 90tabs Dominique Simons, 03/12/2016 day MD 5mg Tablets Amlodipine Besylate 1 by mouth in am 90tabs Dominique Simons, 11/04/2015 MD 5mg Tablets Potassium Chloride take one tablet by 120tabs Dominique Simons, 05/27/2015 Radha ER mouth every day, 20Meq take extra tab Tablets ER 2x/week Aspirin 1 by mouth every 90tabs Dominique Simons, 04/01/[address] Albuterol Sulfate 1 vial in nebulizer 225ml Dominique Simons, 04/01/2015 every 4 hours as (2.5mg/3ML) 0.083% needed for Nebulizer wheezing, sob or persistant cough Cetirizine HCL 1 by mouth every 30tabs Dominique Simons, 04/01/2015 10mg day prn MD Tablets Nasalcrom 1 spray in each 13ml Dominique Simons, 04/01/2015 5.2mg/Act nare tid as needed Aerosol Zolpidem Tartrate 1/2 by mouth every 30tabs Dominique Simons, 04/01/2015 night at bedtime as MD 10mg Tablets needed sleep Reference #: [id number] Valsartan-Hydrochlo take one tablet by 90tabs Dominique Simons, 04/01/2015 rothiazide mouth every day MD 320-25mg Tablets Calcium 1000 + D please take one Unknown daily [id number] Tablets History Medications Ventolin HFA take 2 puffs every 4 24gm J45.30 Ronak, 03/06/2019 - hours as needed for MD Dominique 03/20/2019 108(90Base) wheezing,shortness of mcg/Act Aerosol breath or persistent cough. Calcium take one tablet by mouth 100tabs Ronak, 01/12/2019 - Carbonate-Vitamin 2x/day MD Dominique 06/09/2019 D [id number] Tablets Immunizations CPT Code Status Date Vaccine Lot # [id number] Given 09/19/2018 Tdap injection [id number] 64632 Given 07/09/2018 Influenza High Dose [id number] 07740 Given 08/13/2016 Influenza Virus Vaccine Split Virus Use For [id number] Individual 3Yr Older Q2038 Given 08/05/2015 Influenza Vaccine (Fluzone) Age 3 And Older [id number] 28050 Given 08/05/2015 Pneumococcal Conjugate Vaccine 13 Valent For [id number] Intramuscular Use Q2038 Given 07/24/2013 Influenza Vaccine (Fluzone) Age 3 And Older 81605 Given 03/16/2010 Zoster Vaccine Live Injection 62708 Given 02/04/2008 Tdap injection 45751 Given 08/26/2006 Pneumovax Injection Vital Signs Date Vital Result Comment 06/09/2019 1:22pm BP Systolic 134 mmHg BP Diastolic 71 mmHg Body Temperature 97.6 F Heart Rate 56 /min Respiratory Rate 18 /min Height 65 inches 5'5" Weight 150.00 lb BMI (Body Mass Index) 25.0 kg/m2 BSA (Body Surface Area) 1.75 m2 [place] body weight in kilograms 57 kg O2 % BldC Oximetry 93 % Ra 03/06/2019 12:51pm BP Systolic Sitting Left Arm 118 mmHg BP Diastolic Sitting Left Arm 76 mmHg Body Temperature 98.3 F Heart Rate 68 /min Respiratory Rate 18 /min Height 65 inches 5'5" Weight 150.00 lb BMI (Body Mass Index) 25.0 kg/m2 BSA (Body Surface Area) 1.75 m2 [place] body weight in kilograms 57 kg O2 % BldC Oximetry 93 % Results Description No Information Available Procedures Date Code Description Status 09/19/2018 [id number] Mammogram Completed 09/11/2018 [id number] Diabetic Foot Exam Completed 08/05/2017 516473043 Bone Mineral Density Test Completed 07/17/2016 [id number] Colonoscopy Completed 05/07/2016 [id number] Colonoscopy Completed 08/12/2015 [id number] Mammogram Completed Medical Devices Description No Information Available Encounters Type Date Location Provider Dx Diagnosis Office Visit 06/09/2019 Family Medicine Jimenez Gonzalez MD Z01.818 Encounter for other 1:30p Joes Alejandro KERR preprocedural examination Z79.899 Other retirement (current) drug therapy Office Visit 03/06/2019 1:00p [facility] Medicine Dominique Simons J45.21 Mild intermittent Jose Alejandro KERR MD asthma with (acute) exacerbation Office Visit 01/12/2019 8:30a [facility] Medicine Dominique Simons, I10 Essential Jose Alejandro KERR MD (primary) hypertension J45.20 Mild intermittent asthma, uncomplicated M25.512 Pain in left shoulder Assessments Date Code Description Provider 06/09/2019 Z01.818 Encounter for other preprocedural examination Jimenez Gonzalez MD 06/09/2019 Z79.899 Other retirement (current) drug therapy Jimenez Gonzalez MD 03/06/2019 J45.21 Mild intermittent asthma with (acute) Dominique Simons MD exacerbation 01/12/2019 I10 Essential (primary) hypertension Dominique Simons MD 01/12/2019 J45.20 Mild intermittent asthma, uncomplicated Dominique Simons MD 01/12/2019 M25.512 Pain in left shoulder Dominique Simons MD Plan of Treatment Future Appointment(s):07/20/2019 8:30 am - Dominique Simons MD at [facility]06/09/2019 - Jimenez Gonzalez MDZ01.818 Encounter for other preprocedural [id number] Other retirement (current) drug therapyNew Labs: Comprehensive Metabolic Panel, Ordered: 06/09/19Glycohemoglobin A1c, Ordered: LDL Cholesterol Profile, Ordered: 06/09/19 Functional Status Functional Condition Comment Date Status Glasses Active Independent with all ADL's Active Independent with all IADL's Active Mental Status Description No Information Available Referrals Description No Information Available
--- OUTSIDE RECORDS SUMMARY | 2019-07-06 18:26 | XMS REPORT | Continuity of Care Document ---
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 Problems Provider Date Hyperlipidemia Dominique [...] Simons, 11/04/2015 MD 5mg Tablets Potassium Chloride 1 tab by mouth 180tabs Jimenez Gonzalez MD 05/27/2015 Radha ER twice a day as 20Meq directed Tablets ER Aspirin 1 by mouth every 90tabs Dominique Simons, 04/01/2015 81mg day MD Tablets DR Albuterol Sulfate 1 vial in [...] Dominique Simons, 04/01/2015 night at bedtime as 10mg Tablets needed sleep Reference #: [id number] Valsartan-Hydrochlo take one tablet by 90tabs Dominique Simons, 04/01/2015 rothiazide mouth every day MD 320-25mg Tablets Calcium 1000 + D please take one Unknown daily [id number] Tablets History Medications Ventolin HFA take 2 puffs every 4 24gm J45.30 Ronak, 03/06/2019 - hours as needed for MD Dominique 03/20/2019 108(90Base) wheezing,shortness of mcg/Act Aerosol breath or persistent cough. Calcium take one tablet by mouth 100tabs Ronak, 01/12/2019 - Carbonate-Vitamin 2x/day MD Dominique 06/09/2019 D [id number] Tablets Immunizations CPT Code Status Date Vaccine Lot # [id number] Given 09/19/2018 Tdap injection [id number] 56426 Given 07/09/2018 Influenza High Dose [id number] 58036 Given 08/13/2016 Influenza Virus Vaccine Split Virus Use For [id number] Individual 3Yr Older Q2038 Given 08/05/2015 Influenza Vaccine (Fluzone) Age 3 And Older [id number] 67633 Given 08/05/2015 Pneumococcal Conjugate Vaccine 13 Valent For [id number] Intramuscular Use Q2038 Given 07/24/2013 Influenza Vaccine (Fluzone) Age 3 And Older 71906 Given 03/16/2010 Zoster Vaccine Live Injection 58830 Given 02/04/2008 Tdap injection 45252 Given 08/26/2006 Pneumovax Injection Vital Signs Date Vital Result Comment 06/09/2019 1:22pm BP Systolic 134 mmHg BP Diastolic 71 mmHg Body Temperature 97.6 F Heart Rate 56 /min Respiratory Rate 18 /min Height 65 inches 5'5" Weight 150.00 lb BMI (Body Mass Index) 25.0 kg/m2 BSA (Body Surface Area) 1.75 m2 [place] body weight in kilograms 57 kg O2 % BldC Oximetry 93 % Ra 03/06/2019 12:51pm BP Systolic Sitting Left Arm 118 mmHg BP Diastolic Sitting Left Arm 76 mmHg Body Temperature 98.3 F Heart Rate 68 /min Respiratory Rate 18 /min Height 65 inches 5'5" Weight 150.00 lb BMI (Body Mass Index) 25.0 kg/m2 BSA (Body Surface Area) 1.75 m2 [place] body weight in kilograms 57 kg O2 % BldC Oximetry 93 % Results Test Date Facility Test Result H/L Range Note Comprehensive 06/10/[address] Glucose 100 mg/dL Normal 74- 106 1 Metabolic Panel [address] [place] [address] [phone] BUN 24 mg/dL High 7-18 Creatinine 0.9 mg/dL Normal 0.6-1.3 Glom Filtration Rate, Estimate >60 mL/min >60 If >60 mL/min >60 2 BUN/Creat 26.6 ratio Sodium 140 mmol/L Normal 136-145 Potassium 3.2 mmol/L Low 3.5-5.1 Chloride 104 mmol/L Normal 98-107 Carbon Dioxide 29 mmol/L Normal 21-32 Anion Gap 7 mEq/L Low 8-16 Calcium 9.7 mg/dL Normal 8.5-10.1 Total Protein 7.2 g/dL Normal 6.4-8.2 Albumin 4.0 g/dL Normal 3.4-5.0 Globulin 3.2 g/dL Normal 1.9-4.3 Alb/Glob 1.3 ratio Bilirubin,Total 0.6 mg/dL Normal 0.2-1.0 Sgot/Ast 21 U/L Normal 15-37 SGPT/Alt 27 U/L Normal 12-78 Alkaline Phosphatase 48 U/L Normal 45-117 Glycohemoglobin 06/10/[address] Glycohemoglobin 5.8 % Normal 4.2-6.3 3 A1c [address] [facility] (A1c) [place], [place] [id number] [phone] eAG 120 mg/dL LDL Cholesterol Profile 06/10/[address] Cholesterol 177 mg/dL <200 4 [address] [place] [address] [phone] Triglycerides 121 mg/dL <150 5 HDL Cholesterol 53 mg/dL >40 6 LDL-Cholesterol 100 mg/dL < 100 7 1 Z79.899 2 Note: Persistent reduction for 3 months or more in an eGFR <60 mL/min/1.73 m2 defines CKD. Patients with eGFR values >/=60 mL/min/1.73 m2 may also have CKD if evidence of persistent proteinuria is present. The original MDRD equation for estimated GFR is not valid for patients less than 18 years of age. Additional information may be found at www.kdoqi.org. 3 Elevated levels of HbA1c suggest the need for more aggressive treatment of glycemia. The [place] [employer] recommends that a primary goal of therapy should be a HbA1c of <7% and that physicians should re-evaluate the treatment regimen in patients with HbA1c values consistently >8%. 4 Reference Guidelines*: Desirable: ........... < 200 mg/dL Borderline High: ..... 200-239 mg/dL High: ................ >= 240 mg/dL * The National Cholesterol Education Program (NCEP) 5 Reference Guidelines*: Normal: ............. < 150 mg/dL Borderline High: .... 150-199 mg/dL High: ............... 200-499 mg/dL Very High: .......... > 500 mg/dL * Source: National Cholesterol Education Program (NCEP) 6 Reference Guidelines*: Low HDL: ..... < 40 mg/dL Normal: ..... 40-60 mg/dL Desirable: ... > 60 mg/dL *The National Cholesterol Education Program(NCEP) 7 Reference Guidelines*: Optimal:........... <100 mg/dL Near Optimal....... 100-129 mg/dL Borderline High.... 130-159 mg/dL High............... 160-189 mg/dL Very High.......... >=190 mg/dL * Source: National Cholesterol Education Program (NCEP) Procedures Date Code Description Status 09/19/2018 [id number] Mammogram Completed 09/11/2018 [id number] Diabetic Foot Exam Completed 08/05/2017 [id number] Bone Mineral Density Test Completed 07/17/2016 [id number] Colonoscopy Completed 05/07/2016 [id number] Colonoscopy Completed 08/12/2015 [id number] Mammogram Completed Medical Devices Description No Information Available Encounters Type Date Location Provider Dx Diagnosis Office Visit 06/09/2019 [facility] Medicine Jimenez Gonzalez MD Z01.818 Encounter for other 1:30p Jose Alejandro KERR preprocedural examination Z79.899 Other care home (current) drug therapy Office Visit 03/06/2019 1:00p [facility] Dominique Simons, J45.21 Mild intermittent Jose Alejandro KERR MD asthma with (acute) exacerbation Office Visit 01/12/2019 8:30a [facility] Dominique Simons, I10 Essential Jose Alejandro KERR MD (primary) hypertension J45.20 Mild intermittent asthma, uncomplicated M25.512 Pain in left shoulder Assessments Date Code Description Provider 06/09/2019 Z01.818 Encounter for other preprocedural examination Jimenez Gonzalez MD 06/09/2019 Z79.899 Other care home (current) drug therapy Jimenez Gonzalez MD 03/06/2019 J45.21 Mild intermittent asthma with (acute) Dominique Simons MD exacerbation 01/12/2019 I10 Essential (primary) hypertension Dominique Simons MD 01/12/2019 J45.20 Mild intermittent asthma, uncomplicated Dominique Simons MD 01/12/2019 M25.512 Pain in left shoulder Dominique Simons MD Plan of Treatment Future Appointment(s):07/20/2019 8:30 am - Dominique Simons MD at [facility] Jose Alejandro KERR Functional Status Functional Condition Comment Date Status Glasses Active Independent with all ADL's Active Independent with all IADL's Active Mental Status Description No Information Available Referrals Description No Information Available
[2019-07-06 19:13] VITALS: BP 141/62
[2019-07-06] MEDS ORDERED: Acetaminophen TAB* 325 MG PO ONE (20:26)
--- NOTE | 2019-07-06 20:26 | UC ---
Throat Pain/Nasal Lauri HPI - HPI Summary HPI Summary: 78-year-old woman comes in with a chief complaint of feeling ill with frontal headache and fevers with a cough. Symptoms started yesterday. Minimal rhinorrhea no sore throat. No chest congestion. Denies any rate recent tick bites or rash. No complaint of any chest pain or abdominal pain dysuria or diarrhea. The forehead is worse with cough. Has not taken any over-the- counter medications. - History of Current Complaint Chief Complaint: UCGeneralIllness Stated Complaint: COUGH, FEVER Time Seen by Provider: 07/06/19 20:17 Pain Intensity: 3 - Allergies/Home Medications Allergies/Adverse Reactions: Allergies Allergy/AdvReac Type Severity Reaction Status Date / Time cat dander Allergy Eyes Verified 07/06/19 18:59 Itchy/Swollen/Red/Watery environmental Allergy Eyes Uncoded 07/06/19 18:59 Itchy/Swollen/Red/Watery Home Medications: Home Medications Calcium Carbonate/Vitamin D3 [Calcium 600+D High Potenc] 1 tab PO BID 07/06/19 [ History Confirmed 07/06/19] Cromolyn Sodium [Nasalcrom] 5.2 mg NA DAILY PRN 07/06/19 [History Confirmed ] PMH/Surg Hx/FS Hx/Imm Hx Previously Healthy: Yes Cardiovascular History: Hypertension Respiratory History: Asthma - Surgical History Surgical History: Yes Surgery Procedure, Year, and Place: tonsillectomy. hysterectomy. . gallbladder removal. bone cyst removed right leg - Family History Known Family History: Positive: Cardiac Disease, Hypertension - Social History Alcohol Use: None Substance Use Type: None Smoking Status (MU): Never Smoked Tobacco Review of Systems All Other Systems Reviewed And Are Negative: Yes Constitutional: Positive: Fever, Chills, Other - see hpi Skin: Positive: Negative Eyes: Positive: Negative ENT: Positive: Nasal Discharge, Other - see hpi Respiratory: Positive: Cough Cardiovascular: Positive: Negative Gastrointestinal: Positive: Negative Genitourinary: Positive: Negative Motor: Positive: Negative Neurovascular: Positive: Negative Musculoskeletal: Positive: Negative. Negative: Myalgia Neurological: Positive: Headache Psychological: Positive: Negative Is Patient Immunocompromised?: No Physical Exam Triage Information Reviewed: Yes Appearance: No Pain Distress, Well-Nourished, Ill-Appearing - mild Vital Signs: Initial Vital Signs Temp 100.9 F 07/06/19 19:09 Pulse 65 07/06/19 19:09 Resp 22 07/06/19 19:09 BP 141/62 07/06/19 19:09 Pulse Ox 96 07/06/19 19:09 Vital Signs Reviewed: Yes Eye Exam: Normal Eyes: Positive: Conjunctiva Clear ENT: Positive: Pharyngeal erythema - mild, TMs normal Neck: Positive: Supple Respiratory: Positive: Lungs clear, Normal breath sounds, No respiratory distress Cardiovascular: Positive: RRR Musculoskeletal: Positive: Strength Intact, ROM Intact Neurological: Positive: Alert, Muscle Tone Normal Psychological: Positive: Age Appropriate Behavior Skin Exam: Normal Throat Pain/Nasal Course/Dx - Course Course Of Treatment: We discussed the source of the fever and the patient believes it sinusitis and her frontal sinuses. She has minimal rhinorrhea minimal sore throat. No other source of infection obvious by history or exam. We discussed viral versus bacterial infections and the role of antibiotics and the patient prefers to be on antibiotics at this time. Patient's get reevaluated if worse or not improving or any questions or concerns. - Differential Dx/Diagnosis Provider Diagnosis: Sinusitis, Fever Discharge ED - Sign-Out/Discharge Documenting (check all that apply): Patient Departure All imaging exams completed and their final reports reviewed: No Studies - Discharge Plan Condition: Stable Disposition: HOME Prescriptions: Amoxicillin PO (*) [Amoxicillin 875 MG (*)] 875 mg PO BID #20 tab Patient Education Materials: Sinusitis (ED), Fever in Adults (ED) Referrals: Dominique Simons MD [Primary Care Provider] - Additional Instructions: FOLLOW UP WITH YOUR DOCTOR IF NOT COMPLETELY IMPROVED. GET RECHECKED SOONER IF WORSE OR ANY QUESTIONS OR CONCERNS. - Billing Disposition and Condition Condition: STABLE Disposition: Home
== END 2019-07-06 20:35 | disposition home or self-care (01) ==
LOC: UCCORT 18:16
DX: J32.9 Chronic sinusitis, unspecified (principal); R50.9 Fever, unspecified; I10 Essential (primary) hypertension
CPT/HCPCS: 99212; A9270-GY; G0463